=== PATIENT | male | born 2000 | race Caucasian/White ===

== ENCOUNTER 2020-10-11 15:27 | Emergency (ER) | payer SELFPAY ==
--- NOTE | ~2020-10-11 | XR_ITS ---
XR chest 1V portable DATE: 10/11/2020 16:27 INDICATION: Cough, fever TECHNIQUE: Portable upright AP chest on 10/11/2020 at 1629 hours COMPARISON: None FINDINGS: Normal heart size. No hilar or mediastinal enlargement. No pulmonary infiltrate or consol idation, pulmonary vascular congestion or pleural effusion. No pneumothorax. IMPRESSION: Negative Reviewed, dictated and finalized at location A. IMPRESSION: Negative
[2020-10-11 15:30] VITALS: BP 113/64; PULSE 109; RESP 19; TEMP 38.1; O2SAT 97
[2020-10-11 16:00] LABS: Basophils Percent Auto 0.3 % (0.2-1.2); Eosinophils Percent Auto 0.1 % (0-4.4); Hematocrit 44.4 % (42.0-52.0); Hemoglobin 15.3 g/dL (14.0-18.0); Immature Granulocyte Absolute 0.07 K/mm3 (0.00-0.031); Immature Granulocyte Percent A 0.6 % (0-0.5); Lymphocytes Absolute Auto 0.83 K/mm3 (0.9-3.2); Lymphocytes Percent Auto 7.5 % (18.3-44.2); Mean Corpuscular HGB Conc 34.5 g/dl (32-36); Mean Corpuscular Hemoglobin 30.3 pg (26-34); Mean Corpuscular Volume 87.9 fl (80-100); Mean Platelet Volume 10.7 fl (7.4-10.4); Monocytes Absolute Auto 1.1 K/mm3 (0.1-0.6); Monocytes Percent Auto 9.7 % (2.6-8.5); Neutrophils Absolute Auto 9.1 K/mm3 (1.3-6.7); Neutrophils Percent Auto 81.8 % (45.5-73.1); Platelet Count Result 182 k/mm3 (150-375); Red Blood Count 5.05 M/mm3 (4.6-6.20); Red Cell Distribution Width 12.3 % (11.5-14.5); White Blood Count 11.1 K/mm3 (4.5-10.0)
[2020-10-11 16:10] LABS: Anion Gap 11 mmol/L (8-16); Blood Urea Nitrogen 11 mg/dL (9-20); Calcium 9.7 mg/dL (8.4-10.2); Carbon Dioxide 26 mmol/L (22-30); Chloride 102 mmol/L (98-107); Estimated CRCL calculation 83 ml/min; Estimated Glomerular Filt Rate > 60; Glucose 129 mg/dL (75-110); Potassium 3.9 mmol/L (3.4-5.0); Sodium 139 mmol/L (137-145)
--- NOTE | 2020-10-11 16:18 | ED.GENADULT ---
HPI - General Adult General Chief complaint: Fever Stated complaint: Fever Time Seen by Provider: 10/11/20 15:51 Source: patient History of Present Illness HPI narrative: Patient is a 19 y/o male complaining of bilateral temporal headache starting 2 days ago. He describes the pain as aching rates it as 7/10. There is no alleviating or exacerbating factor. He also has a sore throat and cough. Related Data Allergies Allergy/AdvReac Type Severity Reaction Status Date / Time No Known Allergies Allergy Verified 10/11/20 15:44 Review of Systems Constitutional: Constitutional: Denies chills, Reports fever(s), Reports headache(s) and Denies weakness Eyes: Eyes: Denies blurry vision ENT: Reports headache(s), Denies neck pain and Reports sore throat Cardiovascular: Cardiovascular: Denies chest pain and Denies dyspnea Respiratory: Respiratory: Reports cough and Denies dyspnea Gastrointestinal: Gastrointestinal: Denies abdominal pain, Denies diarrhea, Denies nausea and Denies vomiting Genitourinary: Genitourinary: Denies hematuria and Denies dysuria Musculoskeletal: Musculoskeletal: Denies back pain and Denies neck pain Neurologic: Reports headache(s) and Denies weakness [facility] Social History Social History Gender identity (if verbalized by the patient): Male Exam Const: General: no acute distress and well developed Orientation/consciousness: oriented to person, oriented to place, oriented to time and patient oriented x3 HENMT: Head: normocephalic Ears: external ears normal General nose exam: Normal external nose present Eyes: General: appearance normal, both eyes and all related structures Conjunctivae: conjunctivae normal Neck: Neck: normal visual inspection and full ROM Chest: Chest palpation & inspection: normal inspection of the chest and no tenderness Resp: Effort & Inspection: normal respiratory effort Auscultation: clear to auscultation bilaterally Cardio: Rate: regular rate Rhythm: regular rhythm GI: GI Palp: No abdominal tenderness and Yes Soft to palpation Skin: General skin exam: normal color and turgor normal Neuro: General: oriented to person, oriented to place, oriented to time and patient oriented x3 Cognition (Neuro): normal cognition Extrem: General: normal to inspection, full ROM and no pedal edema Psych: Appearance: grossly normal Mental Status: mental status grossly normal Affect: normal affect Course Reevaluation(s) Reevaluation #1: Offered patient LP for further evaluation of headache and fever. However, patient states that he feels better and declined. He is instructed to return if his symptoms worsen. Date: 10/11/20 Vital Signs Vital signs: Vital Signs Temperature 38.1 C H 10/11/20 15:30 Pulse Rate 109 H 10/11/20 15:30 Respiratory Rate 19 10/11/20 15:30 Blood Pressure 113/64 10/11/20 15:30 Pulse Oximetry 97 10/11/20 15:30 Temperature 38.1 C H 10/11/20 15:30 Pulse Rate 97 10/11/20 18:23 Respiratory Rate 18 10/11/20 18:23 Blood Pressure 111/71 10/11/20 18:23 Pulse Oximetry 100 10/11/20 18:23 Medical Decision Making Vital Signs Vital Signs: Vital Signs Temperature 38.1 C H 10/11/20 15:30 Pulse Rate 109 H 10/11/20 15:30 Respiratory Rate 19 10/11/20 15:30 Blood Pressure 113/64 10/11/20 15:30 Pulse Oximetry 97 10/11/20 15:30 Temperature 38.1 C H 10/11/20 15:30 Pulse Rate 97 10/11/20 18:23 Respiratory Rate 18 10/11/20 18:23 Blood Pressure 111/71 10/11/20 18:23 Pulse Oximetry 100 10/11/20 18:23 Lab Data Result diagrams: 10/11/20 15:54 10/11/20 15:54 Labs: Lab Results 10/11/20 10/11/20 10/11/20 Range/Units 15:54 15:54 15:58 WBC 11.1 H (4.5-10.0) K/mm3 RBC 5.05 (4.6-6.20) M/mm3 Hgb 15.3 (14.0-18.0) g/dL Hct 44.4 (42.0-52.0) % MCV 87.9 (80-100) fl MCH 30.3 (26-34) pg MCHC 34.5
[2020-10-11 17:00] LABS: Monoscreen Negative (Negative); Negative Monotest Control Negative (Negative); Positive Monotest Control Positive (Positive)
[2020-10-11 18:23] VITALS: BP 111/71; PULSE 97; RESP 18; O2SAT 100
== END 2020-10-11 18:23 | disposition home or self-care (01) ==
PROVIDERS: Emergency Provider Emergency Medicine
DX: J02.9 Acute pharyngitis, unspecified (principal); R50.9 Fever, unspecified
CPT/HCPCS: 36415; 71045; 80048; 85025; 86308; 87081; 87880; 99283